=== PATIENT | female | born 1970 | race Hispanic/Latino ===

== ENCOUNTER 2018-05-09 14:48 | Emergency (ER) | payer SELFPAY ==
[2018-05-09 15:17] LABS: BASOPHILS % (AUTO) 1.1 % (0.0-5.0); EOSINOPHILS % (AUTO) 0.5 % (0.0-8.0); HEMATOCRIT 49.9 % (36-48); LYMPHOCYTES % (AUTO) 22.8 % (21.0-51.0); MEAN CORPUSCULAR HEMOGLOBIN 30.8 pg (27.0-33.0); MEAN CORPUSCULAR HGB CONC 33.6 g/dL (32.0-36.0); MEAN CORPUSCULAR VOLUME 91.8 fL (79-99); MONOCYTES % (AUTO) 7.9 % (3.0-13.0); NEUTROPHILS % (AUTO) 67.7 % (40.0-77.0); PLATELET COUNT (AUTO) 252 K/uL (130-400); RED BLOOD CELL COUNT(AUTO) 5.44 MIL/uL (4.00-5.50); RED CELL DISTRIBUTION WIDTH 14.4 % (11.0-15.5)
[2018-05-09 15:20] LABS: APPEARANCE,URINE Turbid (CLEAR); BILIRUBIN,URINE Negative (NEGATIVE); COLOR,URINE Yellow (YELLOW); GLUCOSE, URINE (UA) >=1000 mg/dL (NEGATIVE); KETONES,URINE Negative (NEGATIVE); LEUKOCYTE ESTERASE ,URINE Negative (NEGATIVE); NITRATE,URINE Negative (NEGATIVE); OCCULT BLOOD,URINE Negative (NEGATIVE); PH,URINE 7.5 (5.0-8.0); PROTEIN,URINE Trace (NEGATIVE); UROBILINOGEN,URINE 0.2 mg/dL (0.2-1.0)
[2018-05-09 15:41] LABS: ALBUMIN 2.8 g/dL (3.5-5.0); BILIRUBIN,TOTAL 0.3 mg/dL (0.2-1.0); CREATININE 0.5 mg/dL (0.5-1.5)
[2018-05-09 15:43] LABS: POTASSIUM 2.5 mmol/L (3.5-5.1)
[2018-05-09 15:48] LABS: BACTERIA,URINE Few /HPF (None Seen); RBC,URINE None Seen /HPF (0-1); SQUAMOUS EPITHELIAL CELL,UR None Seen /HPF (0-2); WBC,URINE 0-1 /HPF (0-1)
[2018-05-09 15:49] LABS: AMORPHOUS SEDIMENT,UR Moderate /LPF (None Seen)
[2018-05-09] MEDS ORDERED: METOCLOPRAMIDE 10 MG/2 ML VIAL ONE (16:03)
[2018-05-09] MEDS ORDERED: DiphenhydrAMINE HCL 50 MG/ML VIAL ONE (16:03)
[2018-05-09] MEDS ORDERED: ONDANSETRON HCL 4 MG/2 ML VIAL ONE (16:04)
[2018-05-09] MEDS ORDERED: POTASSIUM BICARB/CIT AC 25 MEQ TABLET.EFF ONE (16:04)
[2018-05-09] MEDS ORDERED: LACTATED RINGERS 1000ML 1,000 ML IV ONE (16:04)
[2018-05-09] MEDS ORDERED: KETOROLAC TROMETHAMINE 30MG/ML ONE (16:04)
== END 2018-05-09 18:17 | disposition home or self-care (01) ==
LOC: EDH 14:48
DX: R51 Headache (principal); E87.6 Hypokalemia; I10 Essential (primary) hypertension; E11.9 Type 2 diabetes mellitus without complications; E07.9 Disorder of thyroid, unspecified; Z88.8 Allergy status to other drugs, medicaments and biological substances; Z79.899 Other long term (current) drug therapy; Z98.890 Other specified postprocedural states
CPT/HCPCS: 36415; 70450; 80053; 81001; 84132; 85025; 93005; 96374; 96375; 99284; J1200; J1885; J2405; J2765; J7120

== ENCOUNTER 2020-10-18 17:26 | Emergency (ER) | payer OTHER ==
[~2020-10-18] VITALS: Ht 152.4 cm; Wt 102.1 kg
[2020-10-18] MEDS ORDERED: MECLIZINE HCL 25 MG TABLET PO ONE (17:45)
[2020-10-18] MEDS ORDERED: ACETAMINOPHEN 500 MG TABLET PO ONE (17:45)
[2020-10-18 18:29] LABS: BASOPHILS % (AUTO) 0.7 % (0.0-5.0); EOSINOPHILS % (AUTO) 1.9 % (0.0-8.0); HEMATOCRIT 40.9 % (36-48); LYMPHOCYTES % (AUTO) 32.7 % (21.0-51.0); MEAN CORPUSCULAR HEMOGLOBIN 28.5 pg (27.0-33.0); MEAN CORPUSCULAR HGB CONC 31.1 g/dL (32.0-36.0); MEAN CORPUSCULAR VOLUME 91.9 fL (79-99); MONOCYTES % (AUTO) 9.1 % (3.0-13.0); PLATELET COUNT (AUTO) 303 K/uL (130-400); RED BLOOD CELL COUNT(AUTO) 4.45 MIL/uL (4.00-5.50); RED CELL DISTRIBUTION WIDTH 15.3 % (11.0-15.5); WHITE BLOOD COUNT (AUTO) 6.9 K/uL (4.8-10.8)
[2020-10-18 18:30] LABS: APPEARANCE,URINE Cloudy (CLEAR); BILIRUBIN,URINE Negative (NEGATIVE); COLOR,URINE Yellow (YELLOW); GLUCOSE, URINE (UA) >=1000 mg/dL (NEGATIVE); KETONES,URINE 40 mg/dL (NEGATIVE); LEUKOCYTE ESTERASE ,URINE Moderate (NEGATIVE); NITRATE,URINE Positive (NEGATIVE); OCCULT BLOOD,URINE Negative (NEGATIVE); PH,URINE 5.5 (5.0-8.0); PROTEIN,URINE Negative (NEGATIVE)
[2020-10-18 18:41] LABS: BACTERIA,URINE Moderate /HPF (None Seen); RBC,URINE 0-1 /HPF (0-1); WBC,URINE 26-50 /HPF (0-1)
[2020-10-18 18:42] VITALS: BP 127/72
[2020-10-18 18:42] LABS: YEAST,URINE BUDDING Rare /HPF (None Seen)
[2020-10-18 18:43] LABS: SQUAMOUS EPITHELIAL CELL,UR Few /HPF (0-2)
[2020-10-18 18:46] LABS: CREATININE 0.6 mg/dL (0.5-1.5); POTASSIUM 4.5 mmol/L (3.5-5.1)
[2020-10-18 18:51] LABS: BILIRUBIN,TOTAL 0.5 mg/dL (0.2-1.0); TOTAL PROTEIN, SERUM 7.1 g/dL (6.0-8.3)
[2020-10-18] MEDS ORDERED: ACETAMINOPHEN 500 MG TABLET ONE (18:55)
[2020-10-18] MEDS ORDERED: MECLIZINE HCL 25 MG TABLET ONE (18:55)
[2020-10-18] MEDS ORDERED: CEPH500B PO (19:30)
[2020-10-18] MEDS ORDERED: MECL-226 PO (19:30)
[2020-10-18] MEDS ORDERED: CEFTRIAXONE 1G VIAL IVP SCH (19:30)
[2020-10-18] MEDS ORDERED: CEFTRIAXONE 1G VIAL ONE (19:41)
[2020-10-18 20:07] VITALS: BP 126/88
== END 2020-10-18 20:08 | disposition home or self-care (01) ==
LOC: EDH 17:26
DX: N39.0 Urinary tract infection, site not specified (principal); R42 Dizziness and giddiness; E11.9 Type 2 diabetes mellitus without complications; I10 Essential (primary) hypertension; E78.5 Hyperlipidemia, unspecified; E66.9 Obesity, unspecified; Z88.8 Allergy status to other drugs, medicaments and biological substances
CPT/HCPCS: 36415; 70450; 71045; 80053; 81001; 84484; 85025; 87077; 87088; 87186; 96374; 99285; J0696

== ENCOUNTER 2021-02-04 21:14 | Emergency (ER) | payer OTHER, SELFPAY ==
[~2021-02-04] VITALS: Ht 121.9 cm; Wt 98.0 kg
[~2021-02-04 21:14] MED LIST: CEPH500B PO; MECL-226 PO
[2021-02-04] MEDS ORDERED: 0.9%NACL 1000ML 1,000 ML IV ONE ×2 (21:30→23:30)
[2021-02-04] MEDS ORDERED: ACETAMINOPHEN 500 MG TABLET PO ONE (21:30)
[2021-02-04 21:54] LABS: BASOPHILS % (AUTO) 0.3 % (0.0-5.0); EOSINOPHILS % (AUTO) 0.4 % (0.0-8.0); HEMATOCRIT 45.2 % (36-48); LYMPHOCYTES % (AUTO) 13.1 % (21.0-51.0); MEAN CORPUSCULAR HEMOGLOBIN 27.4 pg (27.0-33.0); MEAN CORPUSCULAR HGB CONC 32.5 g/dL (32.0-36.0); MEAN CORPUSCULAR VOLUME 84.3 fL (79-99); MONOCYTES % (AUTO) 6.3 % (3.0-13.0); NEUTROPHILS % (AUTO) 79.3 % (40.0-77.0); PLATELET COUNT (AUTO) 281 K/uL (130-400); RED BLOOD CELL COUNT(AUTO) 5.36 MIL/uL (4.00-5.50); WHITE BLOOD COUNT (AUTO) 13.6 K/uL (4.8-10.8)
[2021-02-04] MEDS ORDERED: CEFTRIAXONE 1G VIAL IVP ONE (22:00)
[2021-02-04 22:08] LABS: CREATININE 0.7 mg/dL (0.5-1.5); POTASSIUM 4.1 mmol/L (3.5-5.1)
[2021-02-04 22:13] LABS: ALBUMIN 3.4 g/dL (3.5-5.0); BILIRUBIN,TOTAL 0.9 mg/dL (0.2-1.0); CRP QUANTITATIVE 130.7 mg/L (0.00-9.0); TOTAL PROTEIN, SERUM 8.5 g/dL (6.0-8.3)
[2021-02-04 22:26] LABS: APPEARANCE,URINE Clear (CLEAR); BILIRUBIN,URINE Negative (NEGATIVE); COLOR,URINE Yellow (YELLOW); GLUCOSE, URINE (UA) >=1000 mg/dL (NEGATIVE); KETONES,URINE Trace mg/dL (NEGATIVE); LEUKOCYTE ESTERASE ,URINE Trace (NEGATIVE); NITRATE,URINE Negative (NEGATIVE); OCCULT BLOOD,URINE Negative (NEGATIVE); PH,URINE 7.5 (5.0-8.0); PROTEIN,URINE Negative (NEGATIVE)
[2021-02-04] MEDS ORDERED: INSULIN HUMULIN R 100 UNIT/ML 3ML SQ ONE (22:30)
[2021-02-04 22:56] LABS: BACTERIA,URINE Moderate /HPF (None Seen); RBC,URINE 0-1 /HPF (0-1); SQUAMOUS EPITHELIAL CELL,UR Few /HPF (0-2); WBC,URINE 0-1 /HPF (0-1); YEAST,URINE BUDDING None Seen /HPF (None Seen)
[2021-02-04] MEDS ORDERED: IBUPROFEN 800 MG TAB ONE (23:23)
[2021-02-04] MEDS ORDERED: IBUPROFEN 800 MG TAB PO ONE (23:30)
[2021-02-04] MEDS ORDERED: ACET-2247 PO (23:31)
[2021-02-04] MEDS ORDERED: LEVO500T90 PO (23:31)
[2021-02-05 01:12] VITALS: BP 129/70
== END 2021-02-05 01:29 | disposition home or self-care (01) ==
LOC: EDH 21:14
DX: J18.9 Pneumonia, unspecified organism (principal); E86.0 Dehydration; E11.65 Type 2 diabetes mellitus with hyperglycemia; Z20.822 Contact with and (suspected) exposure to COVID-19; I10 Essential (primary) hypertension; E66.9 Obesity, unspecified; Z68.44 Body mass index [BMI] 60.0-69.9, adult; Z79.1 Long term (current) use of non-steroidal anti-inflammatories (NSAID); Z79.4 Long term (current) use of insulin; Z90.49 Acquired absence of other specified parts of digestive tract
CPT/HCPCS: 36415; 71045; 80053; 81001; 83605; 85025; 86140; 87040 ×2; 87077; 87088; 87186; 87635; 87804 ×2; 87880; 96361; 96372; 96374; 99284; C9803; J0696; J1815; J7030